=== PATIENT | male | born 1955 | race Caucasian/White ===

== ENCOUNTER 2019-01-14 11:29 | Day surgery (SDC) | payer OTHER ==
[2019-01-07 10:15] LABS: ABSOLUTE EOSINOPHILS # (AUTO) 0.1 10^3/uL (0.0-0.6); ABSOLUTE LYMPHOCYTES (AUTO) 1.6 10^3/uL (0.5-4.7); ABSOLUTE MONOCYTES (AUTO) 0.3 10^3/uL (0.1-1.4); ABSOLUTE NEUT (AUTO) 2.5 10^3/uL (1.7-8.2); BASOPHILS % (AUTO) 0.9 % (0-2); EOSINOPHILS % (AUTO) 2.1 % (0-6); HEMATOCRIT 43.4 % (37.9-51.0); LYMPHOCYTES % (AUTO) 35.1 % (13-45); MEAN CORPUSCULAR HEMOGLOBIN 30.3 pg (27.0-33.4); MEAN CORPUSCULAR HGB CONC 34.4 g/dL (32.0-36.0); MEAN CORPUSCULAR VOLUME 88 fl (80-97); MONOCYTES % (AUTO) 6.3 % (3-13); PLATELET COUNT 200 10^3/uL (150-450); RED BLOOD COUNT 4.94 10^6/uL (4.35-5.55); RED CELL DISTRIBUTION WIDTH 12.9 % (11.5-14.0); SEGMENTED NEUTROPHILS % (AUTO) 55.6 % (42-78); TOTAL CELLS COUNTED % (AUTO) 100 %; WHITE BLOOD COUNT 4.5 10^3/uL (4.0-10.5)
--- NOTE | 2019-01-07 10:34 | RADIOLOGY REPORT (SQ) ---
EXAM DESCRIPTION: CHEST PA/LATERAL COMPLETED DATE/TIME: 01/07/2019 10:23 am REASON FOR STUDY: PRE-OP COMPARISON: None. EXAM PARAMETERS: NUMBER OF VIEWS: two views TECHNIQUE: Digital Frontal and Lateral radiographic views of the chest acquired. RADIATION DOSE: NA LIMITATIONS: none FINDINGS: LUNGS AND PLEURA: No opacities, masses or pneumothorax. No pleural effusion. MEDIASTINUM AND HILAR STRUCTURES: No masses or contour abnormalities. HEART AND VASCULAR STRUCTURES: Heart normal size. No evidence for failure. BONES: No acute findings. HARDWARE: None in the chest. OTHER: No other significant finding. IMPRESSION: NO SIGNIFICANT RADIOGRAPHIC FINDING IN THE CHEST. TECHNICAL DOCUMENTATION: JOB ID: [id number] [employer]- All Rights Reserved Reading location - IP/workstation name: [email or web address]
--- NOTE | 2019-01-07 19:06 | EKG REPORT ---
SEVERITY:- ABNORMAL ECG - ECTOPIC ATRIAL RHYTHM SUPRAVENTRICULAR BIGEMINY SHORT MN INTERVAL, ACCELERATED AV CONDUCTION LAD, CONSIDER LEFT ANTERIOR FASCICULAR BLOCK PROBABLE ANTEROSEPTAL INFARCT, OLD : Confirmed by: Lori Kruse MD 07-Jan-2019 19:06:25
[~2019-01-14 11:29] MED LIST: LACTATED RINGERS 1000 ML IV PRN
[2019-01-14] MEDS ORDERED: RINGERS SOLUTION,LACTATED 1,000 ML IV PRN (12:38)
[2019-01-14] MEDS ORDERED: RINGERS SOLUTION,LACTATED 500 ML IV ONE (12:45)
[2019-01-14] MEDS ORDERED: ALBUTEROL SULFATE 0.083% NEB 2.5 MG/3 ML AMPUL NEB ONE ×3 (12:45→13:34)
[2019-01-14 12:46] LABS: PHOSPHORUS 3.7 mg/dL (2.5-4.5)
[2019-01-14] MEDS ORDERED: IPRATROPIUM/ALBUTEROL 0.5-2.5 MG/3 ML AMPUL NEB ONE (13:32)
[2019-01-14] MEDS ORDERED: PROPOFOL INJ 200 MG/20 ML VIAL IV ONE (13:41)
[2019-01-14] MEDS ORDERED: MIDAZOLAM 2 MG/2 ML INJ ONE (13:41)
[2019-01-14] MEDS ORDERED: LIDOCAINE 2% JELLY 30 ML TUBE ONE (14:59)
[2019-01-14] MEDS ORDERED: BACITRACIN ZINC OINTMENT 15 GM ONE (14:59)
[2019-01-14] MEDS ORDERED: PROMETHAZINE HCL INJ 25 MG/1 ML VIAL IV PRN (15:33)
[2019-01-14] MEDS ORDERED: FENTANYL CITRATE INJ/PF 100 MCG/2 ML AMPUL IV PRN ×3 (15:33)
[2019-01-14] MEDS ORDERED: MEPERIDINE HCL/PF INJ 25 MG/1 ML DISP.SYRIN IV PRN (15:33)
[2019-01-14] MEDS ORDERED: DIPHENHYDRAMINE HCL 50 MG/ML VIAL IV PRN (15:33)
[2019-01-14 17:06] VITALS: BP 125/77
--- NOTE | 2019-01-14 18:07 | EKG REPORT ---
SEVERITY:- ABNORMAL ECG - ECTOPIC ATRIAL RHYTHM LEFT ANTERIOR FASCICULAR BLOCK : Confirmed by: Gold Walls MD 14-Jan-2019 18:06:53
--- NOTE | 2019-01-18 09:18 | Discharge Summary ---
Discharge Summary (SDC) - Discharge Final Diagnosis: Bleeding internal hemorrhoids Date of Surgery: 01/14/19 Discharge Date: 01/14/19 Condition: Stable Forms: ASU Anesthesia D/C Instruction, Discharge POC-Surgical Service Treatment or Instructions: Discharge home. Diet as tolerated. Activity: Nonstrenuous. Follow-up with me in 2 to 3 weeks. Okay to shower. Soap buttock and warm bathtub twice daily and after bowel movements. Lidocaine 5% cream/ointment to rectum 3 times daily. Referrals: YANN JURADO MD [Primary Care Provider] - TAMIKA LEONARDO MD [ACTIVE STAFF] - Discharge Diet: As Tolerated Respiratory Treatments at Home: Deep Breathing/Coughing, Incentive Spirometer Discharge Activity: Balance Activity w/Rest Home Care Assistance: None Needed Report the Following to Your Physician Immediately: Shortness of Breath, Nausea, Vomiting, Increase in Pain, Redness, Swelling, Increased Soreness, Wheezing, Seizure, IV Site Infection Signs, Urinary Infection Signs
--- NOTE | 2019-01-18 09:20 | Operative Report ---
Nonrecallable Operative Report DATE OF SURGERY: 01/14/19 PREOPERATIVE DIAGNOSIS: Bleeding internal hemorrhoids POSTOPERATIVE DIAGNOSIS: Same as above OPERATION: Rubber band ligation of bleeding internal hemorrhoids x4 SURGEON: TAMIKA LEONARDO 1ST [employer] SETTER: LIANNE JAIMES ANESTHESIA: LMAC TISSUE REMOVED OR ALTERED: None COMPLICATIONS: None apparent ESTIMATED BLOOD LOSS: Minimal PROCEDURE: Procedure in detail: After informed consent was obtained, the patient was brought to the operating room and laid in the left lateral decubitus position. The Hill-Lyman retractor was inserted into the anus. Enlarged hemorrhoids were found in all 3 hemorrhoid columns. These were internal hemorrhoids only. The rubber band ligation device was used to ligate hemorrhoids in the right posterior, right anterior, and left lateral columns. 4 hemorrhoid bands were used in total. After the rubber bands were placed, the procedure was concluded. All sponge, instrument, and needle counts were correct x2. Lianne Jaimes PA-C was scrubbed and present the entirety of the procedure. She assisted with all portions of procedure including retraction and placement of the rubber bands.
== END 2019-01-14 17:05 | disposition home or self-care (01) ==
LOC: OROUT 11:29
PROVIDERS: ATTEND Surgery
DX: K62.5 Hemorrhage of anus and rectum (principal); K64.8 Other hemorrhoids; J45.909 Unspecified asthma, uncomplicated; Z79.51 Long term (current) use of inhaled steroids
CPT/HCPCS: 93005 ×2; 36415 ×2; 83735; 84100; 85025; 71046; 93010 ×2; 00902; 46221; J2250; J2704; 902; J3490; J7620